=== PATIENT | female | born 1990 ===

== ENCOUNTER 2017-10-19 21:58 | Emergency (ER) | payer BC ==
--- NOTE | 2017-10-19 22:14 | EDM.PDOC ---
ED HPI GENERAL MEDICAL PROBLEM - General Stated Complaint: RT SIDE PAIN Time Seen by Provider: 10/19/17 22:13 Source of Information: Reports: Patient History Limitations: Reports: No Limitations - History of Present Illness INITIAL COMMENTS - FREE TEXT/NARRATIVE: Yaneth complains of upper back and right side pain. Studies morning sudden onset no trauma. Worse with deep breathing and movement radiates to the front. - Related Data Allergies Allergy/AdvReac Type Severity Reaction Status Date / Time No Known Allergies Allergy Verified 10/19/17 22:10 Home Meds: Home Meds Docusate Sodium [Colace] 100 mg PO BID PRN #60 cap 12/28/14 [Rx] Ibuprofen [Motrin] 800 mg PO Q6H PRN #30 tablet 12/28/14 [Rx] Past Medical History - Past Health History Medical/Surgical History: Denies Medical/Surgical History Social & Family History - Living Situation & Occupation Living situation: Reports: with Significant Other Occupation: Employed ED ROS GENERAL - Review of Systems Review Of Systems: ROS reveals no pertinent complaints other than HPI. ED EXAM, UPPER BACK/NECK PAIN - Physical Exam Exam: See Below Exam Limited By: No Limitations General Appearance: Alert Throat/Mouth Exam: Normal Inspection, Normal Lips, Normal Teeth, Normal Gums, Normal Oropharynx, Normal Voice, No Airway Compromise Head Exam: Atraumatic, Normocephalic Cardiovascular/Respiratory: Regular Rate, Rhythm, Normal Breath Sounds, Other ( Tender right rib cage,exteding to scapula) GI/Abdominal: Soft Course - Vital Signs Last Recorded V/S: Last Vital Signs Temp 97.8 F 10/19/17 22:00 Pulse 77 10/19/17 22:00 Resp 18 10/19/17 22:00 BP 135/71 10/19/17 22:00 Pulse Ox 100 10/19/17 22:00 - Orders/Labs/Meds Orders: Active Orders 24 hr Category Date Time Status Ketorolac [Toradol] Med 10/19/17 23:00 Once 60 mg IM ONETIME ONE Labs: Laboratory Tests 10/19/17 10/19/17 10/19/17 Range/Units 22:19 22:19 22:19 WBC 9.9 (4.5-12.0) X10-3/uL RBC 4.37 (3.23-5.20) x10(6)uL Hgb 13.7 D (11.5-15.5) g/dL Hct 40.3 (30.0-51.3) % MCV 92.3 (80-96) fL MCH 31.2 (27.7-33.6) pg MCHC 33.9 (32.2-35.4) g/dL RDW 12.0 (11.5-15.5) % Plt Count 253 (125-369) X10(3)uL MPV 7.7 (7.4-10.4) fL Neut % (Auto) 68.8 (46-82) % Lymph % (Auto) 23.8 (13-37) % [place] % (Auto) 5.6 (4-12) % Eos % (Auto) 1 (1.0-5.0) % Baso % (Auto) 1 (0-2) % Neut # (Auto) 6.8 (1.6-8.3) # Lymph # (Auto) 2.4 (0.6-5.0) # [place] # (Auto) 0.6 (0.0-1.3) # Eos # (Auto) 0.1 (0.0-0.8) # Baso # (Auto) 0.0 (0.0-0.2) # D-Dimer, Quantitative 0.37 (0.0-0.59) mg/LFEU Sodium 137 (135-145) mmol/L Potassium 3.9 (3.5-5.3) mmol/L Chloride 102 (100-110) mmol/L Carbon Dioxide 27 (21-32) mmol/L BUN 11 (7-18) mg/dL Creatinine 0.7 (0.55-1.02) mg/dL Est Cr Clr Drug Dosing 113.01 mL/min Estimated GFR (MDRD) > 60 (>60) BUN/Creatinine Ratio 15.7 (9-20) Glucose 98 (80-116) mg/dL Calcium 9.2 (8.6-10.2) mg/dL C-Reactive Protein (0.5-0.9) mg/dL 10/19/17 Range/Units 22:19 WBC (4.5-12.0) X10-3/uL RBC (3.23-5.20) x10(6)uL Hgb (11.5-15.5) g/dL Hct (30.0-51.3) % MCV (80-96) fL MCH (27.7-33.6) pg MCHC (32.2-35.4) g/dL RDW (11.5-15.5) % Plt Count (125-369) X10(3)uL MPV (7.4-10.4) fL Neut % (Auto) (46-82) % Lymph % (Auto) (13-37) % [place] % (Auto) (4-12) % Eos % (Auto) (1.0-5.0) % Baso % (Auto) (0-2) % Neut # (Auto) (1.6-8.3) # Lymph # (Auto) (0.6-5.0) # [place] # (Auto) (0.0-1.3) # Eos # (Auto) (0.0-0.8) # Baso # (Auto) (0.0-0.2) # D-Dimer, Quantitative (0.0-0.59) mg/LFEU Sodium (135-145) mmol/L Potassium (3.5-5.3) mmol/L Chloride (100-110) mmol/L Carbon Dioxide (21-32) mmol/L BUN (7-18) mg/dL Creatinine (0.55-1.02) mg/dL Est Cr Clr Drug Dosing mL/min Estimated GFR (MDRD) (>60) BUN/Creatinine Ratio (9-20) Glucose (80-116) mg/dL Calcium (8.6-10.2) mg/dL C-Reactive Protein < 0.2 L (0.5-0.9) mg/dL Departure - Departure Time of Disposition: 23:01 Disposition: Home, Self-Care 01 Clinical Impression: Myofacial muscle pain - Discharge Information Referrals: PCP,None [Primary Care Provider] - - Problem List & Annotations (1) Myofacial muscle pain SNOMED Code(s): 615907806 Code(s): M79.1 - MYALGIA Status: Acute Current Visit: Yes - Problem List Review Problem List Initiated/Reviewed/Updated: Yes - My Orders Last 24 Hours: My Active Orders 10/19/17 23:00 Ketorolac [Toradol] 60 mg IM ONETIME ONE - Assessment/Plan Last 24 Hours: My Active Orders 10/19/17 23:00 Ketorolac [Toradol] 60 mg IM ONETIME ONE Plan: Heating Pad,Icy hot. Rest. NSAIDs PRN
[2017-10-19] MEDS ORDERED: Ketorolac 60 MG/2 ML SDV IM ONE (23:00)
[2017-10-19 23:23] VITALS: BP 115/62
== END 2017-10-19 23:11 | disposition home or self-care (01) ==
LOC: FB.ED 21:58
DX: M79.1 Myalgia (principal)
CPT/HCPCS: 36415; 80048; 85025; 85379; 86140; 96372; 99283; J1885

== ENCOUNTER 2022-11-21 07:06 | Day surgery (SDC) | payer BC ==
[2022-11-21] MEDS ORDERED: Propofol 200 MG/20 ML SDV IV ONE (07:07)
[2022-11-21] MEDS ORDERED: Lidocaine 2% 5 ML SDV IV ONE (07:07)
[2022-11-21] MEDS ORDERED: Lactated Ringers 1,000 ML IV SCH (07:45)
[2022-11-21] MEDS ORDERED: Sodium Chloride 0.9% 10 ML Syringe FLUSH PRN (07:45)
[2022-11-21] MEDS ORDERED: Simethicone Drops 40 MG/0.6 ML 30 ML Bottle ONE (08:44)
[2022-11-21 12:17] VITALS: BP 120/60; PULSE 62
== END 2022-11-21 10:17 | disposition home or self-care (01) ==
LOC: FB.SDS 07:06
PROVIDERS: ATTEND Surgery
DX: K64.1 Second degree hemorrhoids (principal); Z88.1 Allergy status to other antibiotic agents
CPT/HCPCS: 00811; A9270-GY; J2704; J7120